=== PATIENT | female | born 1955 | race Two or more races ===

== ENCOUNTER → 2024-11-15 | Outpatient (CLI) | payer MEDICARE, MEDICAID, SELFPAY ==
--- NOTE | 2024-11-15 | XR_ITS ---
Examination: Lumbar spine 3 views Technique one AP lateral coned lateral lower lumbar spine 3 views Exam date and time: November 15, 2024 1228 hrs. Comparison March 04, 2016 Indications: Low back pain beginning 2 weeks ago. Findings: Moderate osteopenia Lumbar levoscoliosis 17 degrees Diffuse lumbar disc narrowing mild to moderate Moderate lumbar spondylosis No lumbar fracture Impression: Diffuse [id number] lumbar degenerative disc disease
--- NOTE | 2024-11-15 | XR_ITS ---
Examination: Right knee 2 views Technique: AP lateral right knee 2 views Exam date and time: November 15, 2024 1226 hrs. Indications: Right knee pain beginning 2 weeks ago. 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
== END | disposition home or self-care (01) ==
PROVIDERS: PCP Family Medicine; Referring Provider Family Medicine; Visit Provider Family Medicine
DX: M51.369 Other intervertebral disc degeneration, lumbar region without mention of lumbar back pain or lower extremity pain (principal); M17.11 Unilateral primary osteoarthritis, right knee
CPT/HCPCS: 72100; 73560